=== PATIENT | male | born 1975 | race Caucasian/White ===

== ENCOUNTER → 2023-02-27 14:07 | Outpatient (CLI) | payer SELFPAY ==
--- NOTE | ~2023-02-27 | XR_ITS ---
XR shoulder LT min 2V DATE: 02/27/2023 14:39 INDICATION: Left shoulder pain TECHNIQUE: 4 views COMPARISON: None FINDINGS: No fracture or dislocation, periosteal reaction or bone destruction or abnormal soft tissue calcification. IMPRESSION: Negative Reviewed, dictated and finalized at location A. IMPRESSION: Negative
== END ==
PROVIDERS: PCP Emergency Medicine; Visit Provider Emergency Medicine
DX: M25.512 Pain in left shoulder (principal)
CPT/HCPCS: 73030